=== PATIENT | male | born 1955 | race Caucasian/White ===

== ENCOUNTER 2019-12-15 15:49 | Outpatient (CLI) | payer MEDICARE, OTHER | END 2019-12-15 15:50 | disposition home or self-care (01) | LOC: COV 15:49 | PROVIDERS: ATTEND Family Medicine | DX: M79.10 Myalgia, unspecified site (principal); R53.83 Other fatigue; R68.83 Chills (without fever); J02.9 Acute pharyngitis, unspecified | CPT/HCPCS: 81599 ==

== ENCOUNTER 2020-05-09 16:57 | Outpatient (CLI) | payer OTHER, MEDICARE | END 2020-05-09 16:58 | disposition home or self-care (01) | LOC: COV 16:57 | PROVIDERS: ATTEND Family Medicine | DX: R05 Cough (principal); M79.10 Myalgia, unspecified site; R53.83 Other fatigue; J02.9 Acute pharyngitis, unspecified; Z20.828 Contact with and (suspected) exposure to other viral communicable diseases ==

== ENCOUNTER 2020-06-03 15:33 | Emergency (ER) | payer OTHER, MEDICARE ==
[2020-06-03] MEDS ORDERED: NITROGLYCERIN SL 0.4 MG TABLET SL STA (15:46)
[2020-06-03] MEDS ORDERED: ASPIRIN CHEW 81 MG TABLET PO STA (15:46)
--- NOTE | 2020-06-03 15:50 | ED Physician Documentation ---
PD HPI CHEST PAIN - Stated complaint Stated Complaint: CP - Chief complaint Chief Complaint: Cardiac - History obtained from History obtained from: Patient - Additional information Additional information: 65-year-old gentleman with history of hypertension hypercholesterolemia presents with chest pain. States that started as a backache a couple of days ago and it was intermittent. He wondered if it might have been his heart so he actually tried to exercise and it did not worsen the pain. Today the pain is more in the chest and worse over the last 20 minutes or so. He has no history of heart p roblems despite the comorbidities. He states that he had a negative echo and stress test earlier this year which were per him normal, but done in another facility. There is no associated shortness of breath, although deep breathing makes the pain worse. No nausea or sweats. No fatigue currently. No pedal edema or calf pain. No recent travel. Note made that I ordered some nitroglycerin after my initial evaluation. States that he has not taken Cialis in the least a couple of days. Review of Systems Ten Systems: 10 systems reviewed and negative Constitutional: denies: Fever, Chills, Fatigue, Sweats Cardiac: reports: Chest pain / pressure. denies: Palpitations, Pedal edema, Calf pain Respiratory: denies: Dyspnea, Cough, Hemoptysis, Wheezing PD PAST MEDICAL HISTORY - Past Medical History Cardiovascular: Hypertension, High cholesterol - Past Surgical History Past Surgical History: Yes General: Other - Present Medications Home Medications: Ambulatory Orders Medication Instructions Recorded Confirmed ALPRAZolam [Alprazolam] 0.25 mg PO 09/25/18 Amlodipine Besylate 10 mg PO DAILY 09/25/18 09/25/18 Aspirin EC [Ecotrin] 1 tab DAILY 09/25/18 09/25/18 Atorvastatin Calcium 40 mg PO DAILY 09/25/18 09/25/18 Chlorthalidone 12.5 mg DAILY 09/25/18 09/25/18 Levofloxacin [Levaquin] 1 tab DAILY 09/25/18 09/25/18 Meclizine [Antivert] 25 mg 09/25/18 Metoprolol Succinate [Toprol Xl] 50 mg PO DAILY 09/25/18 09/25/18 Tadalafil [Cialis] 5 mg PO DAILY 09/25/18 09/25/18 lisinopriL [Lisinopril] 40 mg PO DAILY 09/25/18 09/25/18 - Allergies Allergies/Adverse Reactions: Allergies Allergy/AdvReac Type Severity Reaction Status Date / Time Penicillins Allergy Unknown Verified 06/03/20 15:48 Sulfa (Sulfonamide Allergy Unknown Verified 06/03/20 15:48 Antibiotics) - Social History Does the pt smoke?: No Smoking Status: Never smoker Does the pt drink ETOH?: No PD ED PE NORMAL - Vitals Vital signs reviewed: Yes - General General: Alert and oriented X 3, No acute distress - HEENT HEENT: PERRL, EOMI - Neck Neck: Supple, no meningeal sign, No bony TTP - Cardiac Cardiac: RRR, No murmur - Respiratory Respiratory: No respiratory distress, Clear bilaterally - Abdomen Abdomen: Non tender - Back Back: No CVA TTP, No spinal TTP - Derm Derm: Normal color, Warm and dry - Extremities Extremities: No edema, No calf tenderness / cord - Neuro Neuro: Alert and oriented X 3, Normal speech Results - Vitals Vitals: Vital Signs - 24 hr 06/03/20 06/03/20 06/03/20 15:42 15:48 16:18 Temperature 36.3 C L 36.9 C Heart Rate 72 72 68 Respiratory 17 14 14 Rate Blood Pressure 155/98 H 119/76 109/71 O2 Saturation 99 99 99 06/03/20 06/03/20 06/03/20 16:30 17:34 17:37 Temperature Heart Rate 82 85 86 Respiratory 16 21 14 Rate Blood Pressure 97/72 89/68 L 103/66 O2 Saturation 98 99 94 Oxygen O2 Source Room air - EKG (time done) 1537 Rate: Rate (enter#) (71) Rhythm: NSR (eith mult PVCs) [place]: Normal Intervals: Normal [place] Ischemia: Non specific changes (Low voltage in the extremity leads, some nonspecific changes but no real ST-T changes compared with September 25, 2018.) - Labs Labs: Laboratory Tests 06/03/20 06/03/20 06/03/20 16:04 16:04 16:04 WBC 7.4 RBC 5.31 Hgb 16.4 Hct 45.5 MCV 85.7 MCH 30.9 MCHC 36.0 RDW 12.5 Plt Count 242 MPV 7.7 Neut # (Auto) 4.4 Lymph # (Auto) 2.0 [place] # (Auto) 0.8 Eos # (Auto) 0.2 Baso # (Auto) 0.1 Absolute Nucleated RBC 0.00 Nucleated RBC % 0.0 Sodium 139 Potassium 3.6 Chloride 100 L Carbon Dioxide 27 Anion Gap 12.0 BUN 24 H Creatinine 1.4 H Estimated GFR (MDRD) 51 L Glucose 113 H Calcium 9.8 Total Bilirubin 0.8 AST 25 ALT 29 Alkaline Phosphatase 40 L Troponin I High Sens 2.5 Total Protein 7.9 Albumin 4.8 Globulin 3.1 Albumin/Globulin Ratio 1.5 Lipase 51 06/03/20 17:53 WBC RBC Hgb Hct MCV MCH MCHC RDW Plt Count MPV Neut # (Auto) Lymph # (Auto) [place] # (Auto) Eos # (Auto) Baso # (Auto) Absolute Nucleated RBC Nucleated RBC % Sodium Potassium Chloride Carbon Dioxide Anion Gap BUN Creatinine Estimated GFR (MDRD) Glucose Calcium Total Bilirubin AST ALT Alkaline Phosphatase Troponin I High Sens 2.6 Total Protein Albumin Globulin Albumin/Globulin Ratio Lipase - Rads (name of study) 1v chest XR Radiology: EMP read contemporaneously (NAD) PD MEDICAL DECISION MAKING - ED course ED course: 65-year-old gentleman with very atypical chest pain although he certainly has risk factors. 2 troponins were done in the department without serial change and they were both low around 2.5. He has a more subacute complaint of shortness of breath that is episodic and improves with burping. There is no exertional component any of his complaints. He had a stress test within the year that was negative. Departure - Departure Disposition: 01 Home, Self Care Clinical Impression: Chest pain Qualifiers: Chest pain type: chest pain on breathing Qualified Code(s): R07.1 - Chest pain on breathing; R07.81 - Pleurodynia Condition: Good Record reviewed to determine appropriate education?: Yes Instructions: ED Chest Pain NonCardiac Comments: As discussed, the chest pain especially your description of the more subacute shortness of breath improves with burping could be GI in origin. There is no evidence of active heart disease today. Talk with your doctor about whether it is worthwhile to repeat the stress test, but also consider referral for upper endoscopy. Return if worse. Continue current medications.
[2020-06-03 16:06] LABS: BASOPHILS # (AUTO) 0.1 10^3/uL (0.0-0.1); BASOPHILS % (AUTO) 0.9 %; EOSINOPHILS # (AUTO) 0.2 10^3/uL (0.0-0.7); EOSINOPHILS % (AUTO) 2.7 %; HGB - HEMOGLOBIN 16.4 g/dL (14.0-18.0); LYMPHOCYTES % (AUTO) 26.6 %; MEAN CORPUSCULAR HEMOGLOBIN 30.9 pg (27.0-31.0); MEAN CORPUSCULAR VOLUME 85.7 fL (80.0-94.0); MEAN PLATELET VOLUME 7.7 fL (7.4-11.4); MONOCYTES # (AUTO) 0.8 10^3/uL (0.0-1.0); MONOCYTES % (AUTO) 10.1 %; NEUTROPHILS # (AUTO) 4.4 10^3/uL (1.5-6.6); NEUTROPHILS % (AUTO) 59.2 %; PLT - PLATELET COUNT 242 10^3/uL (130-450); RED BLOOD COUNT 5.31 10^6/uL (4.70-6.10); RED CELL DISTRIBUTION WIDTH 12.5 % (12.0-15.0); WHITE BLOOD COUNT 7.4 x10^3/uL (4.8-10.8)
[2020-06-03 16:21] LABS: ALBUMIN 4.8 g/dL (3.2-5.5); ALBUMIN/GLOBULIN RATIO 1.5 (1.0-2.2); BILIRUBIN,TOTAL 0.8 mg/dL (0.2-1.0); CALCIUM 9.8 mg/dL (8.5-10.3); CREATININE 1.4 mg/dL (0.6-1.2); TOTAL PROTEIN 7.9 g/dL (6.7-8.2)
--- NOTE | 2020-06-03 16:24 | XRAY Report ---
PROCEDURE: Chest 1 View X-Ray INDICATIONS: Chest Pain TECHNIQUE: One view of the chest was acquired. COMPARISON: None FINDINGS: Surgical changes and devices: None. Lungs and pleura: An incomplete inspiratory result is noted, with low lung volumes and crowding of t he vascular markings. No focal infiltrates are seen. No large pneumothorax or large pleural effusion can be seen. Mediastinum: Mediastinal contours appear normal. Heart size is normal. Bones and chest wall: No suspicious bony lesions. Overlying soft tissues appear unremarkable. IMPRESSION: Portable chest within normal limits for age. Reviewed by: Victor M Lee MD on 06/03/2020 3:23 PM REID Approved by: Victor M Lee MD on 06/03/2020 3:23 PM AKJOHN Station ID: [id number]
[2020-06-03 18:36] VITALS: BP 114/75
== END 2020-06-03 18:40 | disposition home or self-care (01) ==
LOC: ED 15:33
DX: R07.1 Chest pain on breathing (principal); R07.81 Pleurodynia; I10 Essential (primary) hypertension; E78.00 Pure hypercholesterolemia, unspecified
CPT/HCPCS: 36415; 71045; 80053; 83690; 84484; 85025; 93005; 99284; A9270

== ENCOUNTER 2021-09-04 16:12 | Outpatient (CLI) | payer OTHER, MEDICARE ==
[2021-09-04 16:25] LABS: BASOPHILS # (AUTO) 0.1 10^3/uL (0.0-0.1); BASOPHILS % (AUTO) 1.4 %; EOSINOPHILS # (AUTO) 0.2 10^3/uL (0.0-0.7); EOSINOPHILS % (AUTO) 3.5 %; HCT - HEMATOCRIT 42.6 % (42.0-52.0); HGB - HEMOGLOBIN 15.1 g/dL (14.0-18.0); LYMPHOCYTES # (AUTO) 1.7 10^3/uL (1.5-3.5); LYMPHOCYTES % (AUTO) 29.6 %; MEAN CORPUSCULAR HEMOGLOBIN 30.6 pg (27.0-31.0); MEAN CORPUSCULAR HGB CONC 35.4 g/dL (32.0-36.0); MEAN CORPUSCULAR VOLUME 86.2 fL (80.0-94.0); MEAN PLATELET VOLUME 7.7 fL (7.4-11.4); MONOCYTES # (AUTO) 0.6 10^3/uL (0.0-1.0); MONOCYTES % (AUTO) 9.7 %; NEUTROPHILS # (AUTO) 3.2 10^3/uL (1.5-6.6); NEUTROPHILS % (AUTO) 55.5 %; PLT - PLATELET COUNT 211 10^3/uL (130-450); RED BLOOD COUNT 4.94 10^6/uL (4.70-6.10); RED CELL DISTRIBUTION WIDTH 12.8 % (12.0-15.0); WHITE BLOOD COUNT 5.8 x10^3/uL (4.8-10.8)
[2021-09-04 16:39] LABS: ALBUMIN 4.3 g/dL (3.2-5.5); CALCIUM 9.3 mg/dL (8.5-10.3); CREATININE 1.5 mg/dL (0.6-1.2); PHOSPHORUS 3.3 mg/dL (2.5-4.6); POTASSIUM 4.1 mmol/L (3.5-5.0)
[2021-09-04 17:01] LABS: CREATININE,URINE 233.5 mg/dL; MICROALBUM/CREATININE RATIO,UR 43.3 ug/mg (<30.0); MICROALBUMIN,URINE 10.1 mg/dL (0-300.0)
[2021-09-04 17:07] LABS: BILIRUBIN,URINE NEGATIVE (NEGATIVE); GLUCOSE, URINE (UA) NEGATIVE (NEGATIVE); KETONES,URINE (UA) TRACE mg/dL (NEGATIVE); LEUKOCYTE ESTERASE, URINE NEGATIVE (NEGATIVE); NITRITE,URINE NEGATIVE (NEGATIVE); OCCULT BLOOD,URINE NEGATIVE (NEGATIVE); PROTEIN,URINE TRACE mg/dL (NEGATIVE); UROBILINOGEN,URINE 1 (NORMAL) E.U./dL (NORMAL)
[2021-09-04 17:14] LABS: BACTERIA,URINE None Seen /HPF (None Seen); CLARITY,URINE CLEAR (CLEAR); RBC,URINE None Seen /HPF (0-5); SQUAMOUS EPITHELIAL CELL,UR RARE Squamous (<= Few); WBC,URINE 0-3 /HPF (0-3)
== END 2021-09-04 16:13 | disposition home or self-care (01) ==
LOC: LAB 16:12
PROVIDERS: ATTEND Internal Medicine Nephrology
DX: N18.31 Chronic kidney disease, stage 3a (principal)
CPT/HCPCS: 36415; 80069; 81001; 82043; 82570; 85025; 87086

== ENCOUNTER 2023-10-03 16:40 | Emergency (ER) | payer OTHER, MEDICARE ==
[2023-10-03 16:52] VITALS: BP 160/88; O2SAT 98
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
== END 2023-10-03 17:04 | disposition home or self-care (01) ==
LOC: ED 16:40
DX: T54.2X1A Toxic effect of corrosive acids and acid-like substances, accidental (unintentional), initial encounter (principal); X58.XXXA Exposure to other specified factors, initial encounter; I10 Essential (primary) hypertension; E78.00 Pure hypercholesterolemia, unspecified; Z79.899 Other long term (current) drug therapy
CPT/HCPCS: 99282

== ENCOUNTER 2023-12-28 19:08 | Emergency (ER) | payer MEDICARE, OTHER ==
--- NOTE | 2023-12-28 19:57 | XRAY Report ---
PROCEDURE: Chest 2V INDICATIONS: cough TECHNIQUE: 2 views of the chest were acquired. COMPARISON: 06/03/2020 FINDINGS: Surgical changes and devices: None. Lungs and pleura: Low lung volumes. No dense consolidation or pleural effusion Mediastinum: Normal heart size Bones and chest wall: Degenerative changes. IMPRESSION: Low lung volumes. No dense consolidation or pleural effusion. Reviewed by: Amadou Villalta MD on 12/28/2023 7:55 PM PDT Approved by: Amadou Villalta MD on 12/28/2023 7:55 PM PDT Station ID: [id number]
--- NOTE | 2023-12-28 20:24 | ED Physician Documentation ---
PD HPI DYSPNEA - Stated complaint Stated Complaint: SOA/COUGH - Chief complaint Chief Complaint: Resp - History obtained from History obtained from: Patient - Additional information Additional information: HPI from patient. Patient complains of 8 days of productive cough, fatigue. Last few days he has had dyspnea on exertion such as when walking from first floor to the second floor of his dwelling. He denies headache, says he had a headache earlier in the week but this has since resolved. Denies fever. He says his symptoms, overall, feels similar to an episode in the past of pneumonia. He does not offer chest pain is a symptom, but on review of systems, he does say that he has been having brief episodes of midline anterior sharp chest pain. There are no exacerbating or ameliorating factors regarding this chest pain. It does not radiate. Patient has never been diagnosed with either pulmonary or cardiac disease (except for pneumonia). Review of Systems Constitutional: reports: Fatigue. denies: Fever Throat: denies: Sore throat Cardiac: reports: Chest pain / pressure. denies: Pedal edema, Calf pain Respiratory: reports: Dyspnea, Cough. denies: Hemoptysis, Wheezing GI: denies: Abdominal Pain, Nausea, Vomiting PD PAST MEDICAL HISTORY - Past Medical History Past Medical History: Yes Cardiovascular: Hypertension, High cholesterol Respiratory: Pneumonia Neuro: None Endocrine/Autoimmune: None GI: None : None HEENT: None Psych: None Musculoskeletal: None Derm: None - Past Surgical History Past Surgical History: Yes General: Other - Present Medications Home Medications: Ambulatory Orders Medication Instructions Recorded Confirmed ALPRAZolam [Alprazolam] 0.25 mg PO 09/25/18 Amlodipine Besylate 10 mg PO DAILY 09/25/18 09/25/18 Atorvastatin Calcium 40 mg PO DAILY 09/25/18 09/25/18 Chlorthalidone 12.5 mg DAILY 09/25/18 09/25/18 Meclizine [Antivert] 25 mg 09/25/18 Metoprolol Succinate [Toprol Xl] 50 mg PO DAILY 09/25/18 09/25/18 Tadalafil [Cialis] 5 mg PO DAILY 09/25/18 09/25/18 lisinopriL [Lisinopril] 40 mg PO DAILY 09/25/18 09/25/18 Albuterol Sulf [Ventolin Hfa 1 - 2 puffs INH Q4HR PRN #1 each 05/12/24 Inhaler] - Allergies Allergies/Adverse Reactions: Allergies Allergy/AdvReac Type Severity Reaction Status Date / Time Penicillins Allergy Unknown Verified 12/28/23 19:23 Sulfa (Sulfonamide Allergy Unknown Verified 12/28/23 19:23 Antibiotics) - Social History Does the pt smoke?: No Smoking Status: Never smoker Does the pt drink ETOH?: No Does the pt have substance abuse?: No - Immunizations Immunizations are current?: Yes - POLST Patient has POLST: No PD ED PE NORMAL - Vitals Vital signs reviewed: Yes - General General: Alert and oriented X 3, No acute distress, Well developed/nourished - Cardiac Cardiac: RRR, No murmur - Respiratory Respiratory: No respiratory distress - Extremities Extremities: No edema PD ED PE EXPANDED - Respiratory Respiratory: Other (scattered end-expiratory wheezing but overall adequate air movement) Results - Vitals Vitals: Vital Signs - 24 hr 12/28/23 12/28/23 12/28/23 19:20 20:55 21:00 Temperature 37.6 C Heart Rate 80 73 72 Respiratory 18 20 18 Rate Blood Pressure 150/85 H 136/78 H O2 Saturation 95 94 12/28/23 21:55 Temperature Heart Rate 84 Respiratory 16 Rate Blood Pressure 141/81 H O2 Saturation 95 Oxygen O2 Source Room air - EKG (time done) No standard instances EKG releavant findings:: EKG personally interpreted by author of this note. Relevant findings are: Rate: Rate (enter#) (70) Rhythm: NSR [place]: Normal Intervals: Normal [place] QRS: Normal Ischemia: Normal ST segments - Labs Labs: Laboratory Tests 12/28/23 12/28/23 12/28/23 19:10 20:49 20:49 WBC 6.4 RBC 4.59 L Hgb 13.6 L Hct 40.1 L MCV 87.4 MCH 29.6 MCHC 33.9 RDW 13.0 Plt Count 188 MPV 7.8 Neut # (Auto) 4.1 Lymph # (Auto) 1.3 L [place] # (Auto) 0.8 Eos # (Auto) 0.2 Baso # (Auto) 0.1 Absolute Nucleated RBC 0.00 Nucleated RBC % 0.0 Sodium 138 Potassium 3.8 Chloride 105 Carbon Dioxide 27 Anion Gap 6.0 BUN 15 Creatinine 1.1 Estimated GFR (MDRD) 66 L Glucose 104 Calcium 9.5 Troponin I High Sens 4.1 Nasal Adenovirus (PCR) NOT DETECTED Nasal B. parapertussis DNA (PCR) NOT DETECTED Nasal Coronavir 229E PCR NOT DETECTED Nasal Coronavir HKU1 PCR NOT DETECTED Nasal Coronavir NL63 PCR NOT DETECTED Nasal Coronavir OC43 PCR NOT DETECTED Nasal Enterovir/Rhinovir PCR DETECTED A Nasal Influenza B PCR NOT DETECTED Nasal Influenza A PCR NOT DETECTED Nasal Parainfluen 1 PCR NOT DETECTED Nasal Parainfluen 2 PCR NOT DETECTED Nasal Parainfluen 3 PCR NOT DETECTED Nasal Parainfluen 4 PCR NOT DETECTED Nasal RSV (PCR) NOT DETECTED Nasal B.pertussis DNA PCR NOT DETECTED Nasal C.pneumoniae (PCR) NOT DETECTED [place] Human Metapneumo PCR NOT DETECTED Nasal M.pneumoniae (PCR) NOT DETECTED Nasal SARS-CoV-2 (PCR) NOT DETECTED - Rads (name of study) cxr Relevant Findings:: Prelim report reviewed, See rad report PD Medical Decision Making - ED course Complexity details: reviewed results, re-evaluated patient, considered differential, d/w patient ED course: No concerning findings on CBC, basic metabolic profile. Normal high-sensitivity troponin. Unremarkable chest x-ray. Respiratory PCR panel is positive for enterovirus/rhinovirus. Patient is given DuoNeb in the emergency department and reports feeling better after this intervention. Results discussed with patient, return precautions reviewed. Albuterol MDI e-prescribed to patient's pharmacy of choice. Departure - Departure Disposition: 01 Home, Self Care Clinical Impression: Bronchitis with bronchospasm Condition: Good Instructions: ED Bronchitis Asthmatic Follow-Up: Nilda Balderrama MD [Primary Care Provider] - Prescriptions: Albuterol Sulf [Ventolin Hfa Inhaler] 1 - 2 puffs INH Q4HR PRN #1 each PRN Reason: Shortness Of Air/Wheezing Comments: There are no abnormalities on your chest x-ray; specifically, no evidence of pneumonia. I suspect you have bronchitis, which does not show up on chest x- ray. There were no concerning nor diagnostic findings on your blood tests. Your EKG was similarly unremarkable. The nasal swab tested positive for rhinovirus. As we discussed, this is considered a "common cold" virus. This certainly would be the likely explanation for your symptoms. I have electronically submitted a prescription for an albuterol inhaler to the [facility] pharmacy in [place]. Discharge Date/Time: 12/28/23 21:56
[2023-12-28 20:43] LABS: CORONAVIRUS 229E-RESP PCR NOT DETECTED; CORONAVIRUS HKU1-RESP PCR NOT DETECTED; CORONAVIRUS NL63-RESP PCR NOT DETECTED; CORONAVIRUS OC43-RESP PCR NOT DETECTED; HUMAN METAPNEUMOVIRUS NOT DETECTED; SARS-CoV-2 -RESP PCR PANEL NOT DETECTED
[2023-12-28 20:44] LABS: B. PARAPERTUSSIS- RESP PCR PAN NOT DETECTED; B. PERTUSSIS- RESP PCR PANEL NOT DETECTED; C. PNEUMONIAE- RESP PCR PANEL NOT DETECTED; INFLUENZA A- RESP PCR PANEL NOT DETECTED; INFLUENZA B - RESP PCR PANEL NOT DETECTED; M. PNEUMONIAE- RESP PCR PANEL NOT DETECTED; PARAINFLUENZA VIRUS 1 NOT DETECTED; PARAINFLUENZA VIRUS 2 NOT DETECTED; PARAINFLUENZA VIRUS 3 NOT DETECTED; PARAINFLUENZA VIRUS 4 NOT DETECTED; RHINOVIRUS/ENTEROVIRUS DETECTED; RSV- RESP PCR PANEL NOT DETECTED
[2023-12-28 20:55] LABS: BASOPHILS # (AUTO) 0.1 10^3/uL (0.0-0.1); BASOPHILS % (AUTO) 0.8 %; EOSINOPHILS # (AUTO) 0.2 10^3/uL (0.0-0.7); EOSINOPHILS % (AUTO) 3.3 %; HCT - HEMATOCRIT 40.1 % (42.0-52.0); HGB - HEMOGLOBIN 13.6 g/dL (14.0-18.0); LYMPHOCYTES # (AUTO) 1.3 10^3/uL (1.5-3.5); LYMPHOCYTES % (AUTO) 20.5 %; MEAN CORPUSCULAR HEMOGLOBIN 29.6 pg (27.0-31.0); MEAN CORPUSCULAR HGB CONC 33.9 g/dL (32.0-36.0); MEAN CORPUSCULAR VOLUME 87.4 fL (80.0-94.0); MEAN PLATELET VOLUME 7.8 fL (7.4-11.4); MONOCYTES # (AUTO) 0.8 10^3/uL (0.0-1.0); MONOCYTES % (AUTO) 12.1 %; NEUTROPHILS # (AUTO) 4.1 10^3/uL (1.5-6.6); PLT - PLATELET COUNT 188 10^3/uL (130-450); RED BLOOD COUNT 4.59 10^6/uL (4.70-6.10); WHITE BLOOD COUNT 6.4 x10^3/uL (4.8-10.8)
[2023-12-28] MEDS: IPRATROPIUM/ALBUTEROL 3 ML NEB INH STA (20:55)
[2023-12-28 21:14] LABS: CALCIUM 9.5 mg/dL (8.5-10.3); CREATININE 1.1 mg/dL (0.6-1.3); POTASSIUM 3.8 mmol/L (3.5-4.5)
[2023-12-28 21:15] LABS: TROPONIN I HIGH SENSITIVITY 4.1 ng/L (2.3-19.7)
[2023-12-28 21:57] VITALS: BP 141/81; O2SAT 95
== END 2023-12-28 21:56 | disposition home or self-care (01) ==
LOC: ED 19:08
DX: B34.8 Other viral infections of unspecified site (principal); J20.9 Acute bronchitis, unspecified
CPT/HCPCS: 36415; 80048; 84484; 85025; 87633; 93005; 94640; 94664; 99284